=== PATIENT | female | born 1950 | race Caucasian/White ===

== ENCOUNTER 2017-05-30 15:30 | Day surgery (SDC) | payer MEDICARE, OTHER ==
[~2017-05-30] VITALS: Ht 167.6 cm; Wt 62.6 kg
[~2017-05-30 15:30] MED LIST: ALPRAZOLAM0.25 M1 PO; FERROUS SULF325 M2 PO; FLUOXETINE10 M2 PO; GABAPENTIN100 MG PO; LEVOTHYROXIN125 MCG PO; LIPITOR10 M1 PO; LOSARTAN POTASS50 MG PO; METFORMIN500 MG PO; OMEPRAZOLE20 M2 PO; TOLTERODINE TART2 MG PO
[2017-05-30 17:50] VITALS: BP 127/65
== END 2017-05-30 17:51 | disposition home or self-care (01) ==
LOC: ENDO 15:30 → ORM 21:15
PROVIDERS: ATTEND Internal Medicine Gastroenterology
PROC: 0DB48ZX Excision of Esophagogastric Junction, Via Natural or Artificial Opening Endoscopic, Diagnostic (ICD-10-PCS; principal; 2017-05-30)
PROC: 0DB68ZX Excision of Stomach, Via Natural or Artificial Opening Endoscopic, Diagnostic (ICD-10-PCS; 2017-05-30)
DX: D64.9 Anemia, unspecified (principal); K25.9 Gastric ulcer, unspecified as acute or chronic, without hemorrhage or perforation; K31.819 Angiodysplasia of stomach and duodenum without bleeding; K29.50 Unspecified chronic gastritis without bleeding; I10 Essential (primary) hypertension; E11.9 Type 2 diabetes mellitus without complications; E78.00 Pure hypercholesterolemia, unspecified; Z92.21 Personal history of antineoplastic chemotherapy; Z85.028 Personal history of other malignant neoplasm of stomach; Z90.3 Acquired absence of stomach [part of]

== ENCOUNTER 2018-01-30 06:05 | Day surgery (SDC) | payer MEDICARE, OTHER ==
[~2018-01-30] VITALS: Ht 167.6 cm; Wt 64.9 kg
[2018-01-30 08:16] VITALS: BP 109/54
== END 2018-01-30 08:25 | disposition home or self-care (01) ==
LOC: ENDO 06:05 → ORM 09:00
PROVIDERS: ATTEND Internal Medicine Gastroenterology
PROC: 0DB68ZX Excision of Stomach, Via Natural or Artificial Opening Endoscopic, Diagnostic (ICD-10-PCS; principal; 2018-01-30)
DX: K29.50 Unspecified chronic gastritis without bleeding (principal); E11.43 Type 2 diabetes mellitus with diabetic autonomic (poly)neuropathy; K31.84 Gastroparesis; K44.9 Diaphragmatic hernia without obstruction or gangrene; D50.9 Iron deficiency anemia, unspecified; K55.20 Angiodysplasia of colon without hemorrhage; I10 Essential (primary) hypertension; E78.00 Pure hypercholesterolemia, unspecified; Z85.028 Personal history of other malignant neoplasm of stomach